=== PATIENT | male | born 1995 | race Caucasian/White ===

== ENCOUNTER 2020-03-21 13:21 | Emergency (ER) | payer OTHER, SELFPAY ==
[2020-03-21 13:29] VITALS: BP 129/83; PULSE 88; RESP 20; TEMP 36.8; O2SAT 92
[2020-03-21] MEDS: cloNIDine HCL 0.1 MG TABLET PO (13:54)
[2020-03-21] MEDS: diazePAM 5 MG TABLET PO (13:55)
[2020-03-21] MEDS: SODIUM CHLORIDE 0.9% IV 1,000 ML 999 ML IV CONT (13:55)
[2020-03-21] MEDS: DICYCLOMINE HCL 10 MG CAPSULE 20 MG PO (13:55)
--- NOTE | 2020-03-21 13:59 | ED.GENADULT ---
HPI - General Adult General Chief complaint: Unspecified Stated complaint: opiod w/drawl Time Seen by Provider: 03/21/20 13:25 Source: patient and family Mode of arrival: ambulatory Limitations: no limitations History of Present Illness HPI narrative: 24 years old white male been abusing opioids for years stopped 2 to 3 days ago came to the emergency room telling me that I have opioid withdrawal. Patient reports some headache, some general body aches. Patient reports using meth, speed, fentanyl, [place] and other opioids. Patient came to the emergency room with his that. Patient denies any abdominal pain, diarrhea, nausea or anorexia. Patient also denies any diaphoresis, lacrimation, rhinorrhea, aggressive behavior. Related Data Allergies Allergy/AdvReac Type Severity Reaction Status Date / Time amoxicillin Allergy Unknown Verified 03/21/20 13:35 Sulfa (Sulfonamide AdvReac Unknown Verified 03/21/20 13:35 Antibiotics) Review of Systems Review of Systems: Narrative: CONSTITUTIONAL: Denies fever, chills, or sweats. EYES: Denies visual changes, redness, or discharge. ENT: Denies rhinorrhea, congestion, sore throat, or otalgia. CARDIOVASCULAR: Denies chest pain, palpitations, or edema. RESPIRATORY: Denies cough or dyspnea. GASTROINTESTINAL: Denies abdominal pain, nausea, vomiting, or diarrhea. GENITOURINARY: Denies dysuria or hematuria. SKIN: Denies rash or itching. MUSCULOSKELETAL: Denies back pain, joint pain, or myalgia. NEUROLOGIC: Denies headache, numbness, or weakness. PSYCHIATRIC: Denies anxiety or depression. PMFSH Social History Social History Smoking status: Current every day smoker Alcohol intake: current Substance use: current Occupation/Education: unemployed Gender identity (if verbalized by the patient): Male Exam Narrative: Exam Narrative: General appearance: Well-developed, well-nourished, father at the bedside Skin: Normal color Head: Normocephalic, nontraumatic Eyes: Clear conjunctiva ENT: Oropharynx normal, ears normal, nose normal Neck: Supple, nontender Chest and respiratory: Airway patent, no respiratory distress, no accessory muscle use Heart: Regular rate/rhythm Abdomen: Soft, nontender, no organomegaly, quiet bowel sounds Vascular: Normal peripheral pulses, normal capillary refill. Musculoskeletal: Normal range of motion, nontender back Neurologic: Alert and oriented ?3, [employer] is normal as tested, no gross motor deficit Course Course Emergency Course: Stable Vital Signs Vital signs: Vital Signs Temperature 36.8 C 03/21/20 13:29 Pulse Rate 88 03/21/20 13:29 Respiratory Rate 03/21/20 13:29 Blood Pressure 129/83 03/21/20 13:29 Pulse Oximetry 92 03/21/20 13:29 Temperature 36.8 C 03/21/20 13:29 Pulse Rate 88 03/21/20 13:29 Respiratory Rate 03/21/20 13:29 Blood Pressure 129/83 03/21/20 13:29 Pulse Oximetry 92 03/21/20 13:29 Medical Decision Making MDM Narrative Medical decision making narrative: Luke believe patient have opioid withdrawal at this time, his physical exam showed no agitation, no restlessness, no irritability no tremors, no salivation, no diaphoresis no lacrimation. Patient looks comfortable and heart rate running in the 80s, blood pressure 125/80 and saturation 100%. The plan to give patient clonidine, Bentyl and Valium and 1 L of IV fluid. Then discharged to follow-up with chemical dependency as outpatient or inpatient. Instruction will be given to the patient prior to discharge. Vital Signs Vital Signs: Vital Signs Temperature 36.8 C 03/21/20 13:29 Pulse Rate 88 03/21/20 13:29 Respir
--- NOTE | 2020-03-21 14:05 | PC.NURSE ---
pt refuses to take po meds. states too sick .
[2020-03-21 14:55] VITALS: BP 118/79; PULSE 74; RESP 14; O2SAT 100
[2020-03-21 15:15] VITALS: BP 125/79; PULSE 66; RESP 20; O2SAT 100
== END 2020-03-21 15:22 | disposition home or self-care (01) ==
PROVIDERS: Emergency Provider Emergency Medicine
DX: F11.23 Opioid dependence with withdrawal (principal); F17.210 Nicotine dependence, cigarettes, uncomplicated
CPT/HCPCS: 96360; 99283; A9270; J7030